=== PATIENT | male | born 1950 | race Caucasian/White ===

== ENCOUNTER 2019-02-06 04:58 | Inpatient (IN) ==
--- NOTE | 2019-01-10 09:02 | Anesthesiology Consultation ---
Date of Service January 10, 2019 Assessment & Plan (1) Encounter for pre-operative examination: - Awaiting review preop testing (labs, EKG, CXR). - Awaiting clarification from surgeon regarding if medical preop evaluation needed prior to surgery from their perspective. Chart Review Chart Review: Patient seen in Pre Admission Testing Teaching & Discussion Pre-Anesthesia Teaching/Discussion Notes: Instructed NPO after midnight before surgery,except medications with 15 cc of water. Medication instructions provided according to the PAT guidelines. History Surgery Operation Date: 02/06/19 10:30 Proposed Procedures p Left Total Knee Arthroplasty - Kalia Sanderson DO Height/Weight Height: 6 ft Weight: 103.6 kg Allergies Allergy/AdvReac Type Severity Reaction Status Date / Time No Known Allergies Allergy Verified 01/10/19 07:08 Medications Home Medications Medication Instructions Recorded Confirmed Last Taken No Known Home Medications 01/10/19 01/10/19 Unknown Past Medical History Medical History Kidney stones Lumbar vertebral fracture hx (40 years ago)- body cast x couple months Obesity Osteoarthritis Exercise / Class Metabolic Activity II 4-5 Yardwork/Stairs/Walk up hill Past Family History Family History Other No pertinent family history Past Surgical History Surgical History History of cataract surgery right History of cholecystectomy History of cystoscopy History of lithotripsy History of total hip arthroplasty right Past Anesthesia History No Hx of Anesthesia Complications and No Family Hx of Anesthesia Complications History of PONV No Hx of PONV and Hx of Motion Sickness (occasional) Social History Smoking Status: Never smoker Do You Dip or Chew Tobacco: No Hx Alcohol Use: Yes alcohol intake frequency: holidays/special occasions only Hx Substance Use: No substance use type: does not use Review of Systems Patient denies chest pain, shortness of breath, dyspnea on exertion, reflux, cough, wheezing, palpitations. Physical Exam Vital Signs VITALS BP 139/82 P 53 (per patient, chronic low to normal HR/asymptomatic) TEMP 97.4 SP02 96%RA RESP 16 PHYSICAL Full neck and c-spine range of motion. Full TMJ range of motion. TMD 3 finger breaths Mallampati Score 2 Dentition: intact, crowns/caps including upper front Lungs: clear throughout to auscultation Cardiac: regular rate and rhythm, no murmurs noted Spine: normal Carotid arteries: negative bruit Extremities: no edema
--- NOTE | 2019-01-10 10:11 | XRay Report ---
XR chest Pre-admission PA/Lat CLINICAL HISTORY: pat pain COMPARISON STUDY: No previous studies for comparison. FINDINGS: The bones soft tissues and hemidiaphragms are normal. The cardiomediastinal silhouette is n ormal. The lungs are clear. The pulmonary vasculature is normal. IMPRESSION: Negative chest. The above report was generated using voice recognition software. It may contain grammatical, syntax or spelling errors. Electronically signed by: Sunny Rose M.D. 01/10/2019 10:09 AM
[2019-01-10 10:37] LABS: Basophils # (auto) 0.01 K/uL (0-0.2); Basophils % (auto) 0.3 %; Eosinophils # (auto) 0.19 K/uL (0-0.5); Eosinophils % (auto) 4.8 %; Hematocrit (blood only) 42.5 % (42-52); Hemoglobin 14.8 g/dL (14.0-18.0); Lymphocytes # (auto) 1.33 K/uL (1.2-3.4); Lymphocytes % (auto) 33.8 %; Mean Corpuscular Hemoglobin 30.4 pg (25-34); Mean Corpuscular Hgb Conc 34.8 g/dL (32-36); Mean Corpuscular Volume 87.3 fL (80-100); Monocytes % (auto) 12.7 %; Neutrophils % (auto) 48.4 %; Platelet Count 164 K/uL (130-400); RDW Coefficient of Variation 13.6 % (11.5-14.5); RDW Standard Deviation 43.3 fL (36.4-46.3); Red Blood Count 4.87 M/uL (4.7-6.1); White Blood Count 3.93 K/uL (4.8-10.8)
[2019-01-10 10:39] LABS: Estimated Average Glucose 111 mg/dl; Hemoglobin A1C 5.5 % (4.5-5.6)
[2019-01-10 10:47] LABS: Albumin Level 3.5 gm/dl (3.4-5.0); BUN Creatinine Ratio 11.3 (10-20); Calcium 8.6 mg/dl (8.5-10.1); Creatinine Clr Calc Pharmacy 89.8 ml/min; Est GFR (African American) 91.4; Est GFR (Non-African American) 78.9; Potassium 4.4 mmol/L (3.5-5.1)
[2019-01-10 10:53] LABS: INR 1.1 (0.9-1.1); Partial Thromboplastin Ratio 0.9; Partial Thromboplastin Time 24.8 Seconds (21.0-31.0); Prothrombin Time 10.8 Seconds (9.0-12.0)
[2019-01-10 13:44] LABS: Appearance Urine Turbid (Clear); Bacteria Urine Automated Negative (Negative); Bilirubin Urine Negative (Negative); Blood Urine Negative (Negative); Color Urine Dark Yellow; Epithelial Cell Urine Auto 0-5 /lpf (0-5); Glucose Urine UA Negative (Negative); Ketones Urine Negative (Negative); Leukocyte Esterase Urine Negative (Negative); Nitrite Urine Negative (Negative); Protein Urine Negative (Negative); RBC Urine Automated 0-4 /hpf (0-4); Specific Gravity Urine 1.024 (1.000-1.030); Urobilinogen Urine Negative (Negative); pH Urine 5.5 (4.5-7.5)
--- NOTE | 2019-01-29 08:06 | History & Physical Report ---
Date of Service January 29, 2019 date of surgery: 02-06-19 Assessment & Plan (1) Osteoarthritis of left knee: Further care discussed with patient and at this point in time has failed conservative measures and would like to proceed with a Left total knee replacement at [facility]. Plan on discharge will be home with home health physical therapy. DVT prophalaxis with TEDs, SCDs and will also place on aspirin 81 mg p.o. b.i.d. for a month postop. Patient will have follow up appointment in our office two weeks post op for staple removal and re-evaluation. Patient otherwise has no other questions or concerns. History of Present Illness Chief Complaint: left knee pain Mr Osorio is a 68 year old male who complains of left knee pain, presents for pre-op evaluation prior to a left total knee rep lacement at [facility]. He presents with pain and stiffness on the left side. He states that the symptoms have been chronic non-traumatic. The symptoms occur intermittently but have gradually worsened. Currently the patient states that the symptoms are moderate-severe. The pain is described as aching, sharp and throbbing. The symptoms are aggravated by ascending stairs, descending stairs, daily activities, first steps while awake, kneeling, movement, repetitive activities, sleeping on the affected side, squatting and walking. In addition to left knee pain the patient is also experiencing limping, nighttime awakening, instability, pain, stiffness, tenderness and weakness. Prior NSAIDs include Aleve and ibuprofen, he has also tried Tylenol without relief. Allergies Allergy/AdvReac Type Severity Reaction Status Date / Time No Known Allergies Allergy Verified 01/10/19 07:08 Home Medications Home Medications Medication Instructions Recorded Confirmed Type No Known Home Medications 01/10/19 01/10/19 History Past Med/Surg History Medical History Kidney stones Lumbar vertebral fracture hx (40 years ago)- body cast x couple months Obesity Osteoarthritis Surgical History History of cataract surgery right History of cholecystectomy History of cystoscopy History of lithotripsy History of total hip arthroplasty right Family History Other No pertinent family history Social History Preferred Language: [place] Communication Ability: Effective Layer Up Required: No Beliefs That Will Affect Care: None Current Living Situation: Alone Other Information That Helps Us Care for You: No Feels Safe at Home: Yes Safety Concerns: Feels Safe At This Time Smoking Status: Never smoker Do You Dip or Chew Tobacco: No ; Second Hand Exposure: No ; Tobacco Cessation Education Requested by Patient: No Hx Alcohol Use: Yes Hx Substance Use: No Review of Systems Review of Systems: All systems reviewed & are unremarkable except as noted in HPI & below Constitutional: no fever, no chills and no sweats Respiratory: no cough and no dyspnea Cardiovascular: no chest pain, no dyspnea and no orthopnea Gastrointestinal: no abdominal pain, no nausea and no vomiting Musculoskeletal: as per Subjective / HPI Physical Exam Physical Exam: Ht: 6ft Wt: 103.3kg BP: 118/76 Pulse: 68 Constitutional: WD/WN, vitals as above no acute distress Respiratory: normal respiratory effort, lungs clear to auscultation no respiratory distress, no labored breathing and does not use accessory muscles Cardiovascular: RRR, no murmur, no edema Gastrointestinal (Abdomen): normal bowel sounds, soft, nontender, no hepatosplenomegaly Musculoskeletal: Knee: + knee abnormal to inspection (Left knee: ), + effusion (+1 effusion), + surgical incision (well healed portals), + limited ROM of knee (ROM 0/3/110), + knee ROM with crepitation, + joint line tenderness (medial joint line) and + Esteban's sign positive; no deformity, no skin erythema, no ecchymosis, no valgus laxity, no varus laxity, anterior drawer test negative, Kenrick's sign negative and pivot shift test negative Results & Data Laboratory Results Laboratory Results WBC 3.93 K/uL (4.8-10.8) L 01/10/19 09:16 RBC 4.87 M/uL (4.7-6.1) 01/10/19 09:16 Hgb 14.8 g/dL (14.0-18.0) 01/10/19 09:16 Hct 42.5 % (42-52) 01/10/19 09:16 MCV 87.3 fL (80-100) 01/10/19 09:16 MCH 30.4 pg (25-34) 01/10/19 09:16 MCHC 34.8 g/dL (32-36) 01/10/19 09:16 RDW Std Deviation 43.3 fL (36.4-46.3) 01/10/19 09:16 RDW Coeff of Irma 13.6 % (11.5-14.5) 01/10/19 09:16 Plt Count 164 K/uL (130-400) 01/10/19 09:16 MPV 11.0 fL (7.4-10.4) H 01/10/19 09:16 Immature Gran % (Auto) 0.0 % 01/10/19 09:16 Neut % (Auto) 48.4 % 01/10/19 09:16 Lymph % (Auto) 33.8 % 01/10/19 09:16 [place] % (Auto) 12.7 % 01/10/19 09:16 Eos % (Auto) 4.8 % 01/10/19 09:16 Baso % (Auto) 0.3 % 01/10/19 09:16 Immature Gran # (Auto) 0.00 K/uL (0.00-0.02) 01/10/19 09:16 Neut # (Auto) 1.90 K/uL (1.4-6.5) 01/10/19 09:16 Lymph # (Auto) 1.33 K/uL (1.2-3.4) 01/10/19 09:16 [place] # (Auto) 0.50 K/uL (0.11-0.59) 01/10/19 09:16 Eos # (Auto) 0.19 K/uL (0-0.5) 01/10/19 09:16 Baso # (Auto) 0.01 K/uL (0-0.2) 01/10/19 09:16 PT 10.8 Seconds (9.0-12.0) 01/10/19 09:16 INR 1.1 (0.9-1.1) 01/10/19 09:16 APTT 24.8 Seconds (21.0-31.0) 01/10/19 09:16 PTT Ratio 0.9 01/10/19 09:16 Sodium 139 mmol/L (136-145) 01/10/19 09:16 Potassium 4.4 mmol/L (3.5-5.1) 01/10/19 09:16 Chloride 108 mmol/L (98-107) H 01/10/19 09:16 Carbon Dioxide 26 mmol/L (21-32) 01/10/19 09:16 Anion Gap 5.0 (3-11) 01/10/19 09:16 BUN 11 mg/dl (7-18) 01/10/19 09:16 Creatinine 0.98 mg/dl (0.6-1.4) 01/10/19 09:16 Est Cr Clr Drug Dosing 89.8 ml/min 01/10/19 09:16 Est GFR ( Amer) 91.4 01/10/19 09:16 Est GFR (Non-Af Amer) 78.9 01/10/19 09:16 BUN/Creatinine Ratio 11.3 (10-20) 01/10/19 09:16 Glucose 114 mg/dl (70-99) H 01/10/19 09:16 Estimat Average Glucose 111 mg/dl 01/10/19 09:16 Hemoglobin A1c 5.5 % (4.5-5.6) 01/10/19 09:16 Calcium 8.6 mg/dl (8.5-10.1) 01/10/19 09:16 Albumin 3.5 gm/dl (3.4-5.0) 01/10/19 09:16 Urine Color Dark Yellow 01/10/19 09:16 Urine Appearance Turbid (Clear) A 01/10/19 09:16 Urine pH 5.5 (4.5-7.5) 01/10/19 09:16 Ur Specific [place] 1.024 (1.000-1.030) 01/10/19 09:16 Urine Protein Negative (Negative) 01/10/19 09:16 Urine Glucose (UA) Negative (Negative) 01/10/19 09:16 Urine Ketones Negative (Negative) 01/10/19 09:16 Urine Blood Negative (Negative) 01/10/19 09:16 Urine Nitrite Negative (Negative) 01/10/19 09:16 Urine Bilirubin Negative (Negative) 01/10/19 09:16 Urine Urobilinogen Negative (Negative) 01/10/19 09:16 Ur Leukocyte Esterase Negative (Negative) 01/10/19 09:16 Urine WBC (Auto) 1-5 /hpf (0-5) 01/10/19 09:16 Urine RBC (Auto) 0-4 /hpf (0-4) 01/10/19 09:16 U Hyaline Cast (Auto) 1-5 /lpf (0-5) 01/10/19 09:16 U Epithel Cells (Auto) 0-5 /lpf (0-5) 01/10/19 09:16 Urine Bacteria (Auto) Negative (Negative) 01/10/19 09:16 Blood Type A Positive 01/10/19 09:16 Antibody Screen NEGATIVE 01/10/19 09:16 Diagnostic Findings Left Knee X-ray from December 2018 confirms advanced degenerative changes to the left knee, greatest medial compartments and patellofemoral joint, showing joint space narrowing, osteophyte formation and subchondral sclerosis. no acute bony pathology noted.
[2019-02-06] MEDS ORDERED: CeleBREX 200 MG CAP PO SCH (06:00)
[2019-02-06] MEDS ORDERED: TRANEXAMIC ACID 1,000 MG **IV Pre-op IV SCH (06:00)
[2019-02-06] MEDS ORDERED: CEFAZOLIN 2000MG 2,000 MG/15 ML SYR IV SCH (06:00)
[2019-02-06] MEDS ORDERED: ROPIVACAINE 0.5% HCL/PF 150 MG, BUPIVACAINE 0.5% MPF 30 ML, EPINEPHrine 30MG/30ML (OR U... INFIL SCH (06:00)
[2019-02-06] MEDS ORDERED: FAMOTIDINE 20 MG TAB PO SCH (06:00)
[2019-02-06] MEDS ORDERED: METOCLOPRAMIDE HCL 10 MG TABLET PO SCH (06:00)
[2019-02-06] MEDS ORDERED: ACETAMINOPHEN 500 MG TAB PO SCH (06:00)
[2019-02-06] MEDS ORDERED: LR 500ML BOLUS, THEN 15ML/HR IV SCH (06:00)
[2019-02-06] MEDS ORDERED: GABAPENTIN 300 MG CAP PO SCH (06:00)
[2019-02-06] MEDS ORDERED: dexAMETHasone 4 MG TAB PO SCH (06:00)
[2019-02-06] MEDS ORDERED: BUPIVACAINE 0.5 % 5 MG/1 ML PF 10ML VIAL ONE (06:18)
[2019-02-06] MEDS ORDERED: EPINEPHrine INJ 1 MG/ML AMP ONE (06:19)
[2019-02-06] MEDS ORDERED: ROPIVACAINE 0.5% 5 MG/ML 30 ML VIAL ONE (06:19)
[2019-02-06] MEDS ORDERED: TRANEXAMIC ACID 1,000 MG **IV Intra-op IV SCH (06:30)
[2019-02-06] MEDS ORDERED: fentaNYL citrate 100 MCG/2 ML VIAL ONE (06:48)
[2019-02-06] MEDS ORDERED: MIDAZOLAM HCL 1 MG/ML 2ML VIAL ONE (06:48)
[2019-02-06] MEDS ORDERED: ORTHO JOINT ANESTHETIC ONE (07:04)
[2019-02-06] MEDS ORDERED: BACITRACIN INJ 50,000 UNIT VIAL ONE (07:04)
--- NOTE | 2019-02-06 07:10 | History & Physical Bridge Note ---
Date of Service February 06, 2019 History & Physical Bridge Note I have examined the patient, reviewed the History & Physical and in the interval since the performance of the History & Physical I have noted the following changes of clinical significance: no changes noted
[2019-02-06] MEDS ORDERED: PROPOFOL IV EMULSION 10 MG/ML 20 ML VIAL IV ONE (07:38)
--- NOTE | 2019-02-06 08:34 | Operative Report ---
Post Operative Report Pre & Post Diagnosis Operation Date: 02/06/19 07:15 Pre-Op Diagnosis: LEFT KNEE OSTEOARTHRITIS Post-Op Diagnosis: LEFT KNEE OSTEOARTHRITIS I identified the patient and participated in the time-out.: Yes Procedure Operation Date: 02/06/19 07:15 Actual Procedures p Left Total Knee Arthroplasty utilizing [employer] 2 patient matched total knee arthroplasty size 8 femur 8 tibia 9 polyethylene 38 oval patella- Kalia Sanderson DO Surgeon Kalia Sanderson DO Public Improvement Inspector Sunny GONZALEZ Estimated Blood Loss 5 Findings Consistent with Post-Op Diagnosis Patient presents with severe end-stage right apartment degenerative joint disease varus alignment [id number] eburnated bone with osteophytes marginally on both medial lateral compartment as well as patellofemoral subchondral cystic changes sclerosis moderate to large effusion Specimens Bone and cartilage Drains Medium bore Hemovac Complications none Disposition Accompanied Patient To Recovery: No Disposition: Recovery Room Indications Patient presents as a 68-year-old white male being seen by with planes of ongoing pain trouble to his left knee is been no response to conservative management including physical therapy anti-inflammatories relative rest activity modifications corticosteroid injections Visco supplementations a presents the above intraoperative findings were noted. Description of Procedure The patient properly identifiedAfter proper prepping and draping of the left lower extremity anterior midline incision was made over the region of the extensor extensor mechanism after meticulous hemostasis was obtained and maintained in subcutaneous tissues a medial parapatellar incision was made The patella was subluxed lateralward the medial lateral gutter were cleaned from any hypertrophic synovitis and scar tissue of the distal femoral block was placed and the distal femoral osteotomy cut was made subsequently the chamfers anterior and posterior osteotomy cuts were made utilizing the 4-in-1 block the tibia was subsequently subluxed anteriorward medial and ateral meniscal remnants were excised in their entirety remnants of the anterior and posterior cruciate ligaments were excised in their entirety excellent exposure of the proximal tibia was obtained the tibial osteotomy guide was placed on the proximal tibial osteotomy cut was made once again the knee was irrigated with copious amounts of sterile saline solution the patella was subsequently everted lateralward thickened scar tissue around the patella was removed the patella was subsequently cut utilizing a freehand technique and was drilled prepared for final preparation and placement of patella socially flexion-extension gaps were checked and the equal and symmetric trials were placed to the appropriate femoral and tibial trials with poly-spacer being placed for equal flexion and extension gaps and full range of motion including extension to 0 and flexion to 140 the trial components after having been taken to recovery range of motion was subsequently removed meticulous hemostasis was obtained and maintained subsequently a knee block injection of joint cocktail including ropivacaine 0.5% 150 mg. Bupivacaine 0.5% epinephrine 1-200,030 mL's toradol 30 mg dexamethasone 4 mg ketamine 10 mg clonidine 100 micrograms normal saline solution 30 mg was infiltrated into the soft tissues of the posterior knee medial lateral gutters and periosteal synovium special attention was paid to protect neurovascular structures at all times subsequently trial components having been removed the knee was irrigated with sterile saline solution. debris was removed the proximal tibia was subsequently prepared and was made ready for the placement of the tibial component tibial component was also cemented and tamped into position the femoral component was subsequently placed and cemented in the position the patellar component was subsequently cemented in position because hemostasis once again obtained and maintained wound having been thoroughly irrigated with debridement and debridement lavage was performed as well as a medial parapatellar incision closed with #1 Vicryl in interrupted fashion subcutaneous was closed with #2 Vicryl skin was closed with skin clips. PA-C was necessary for prepping and drapping as well as wound closure of deep fascia Sub cutaneous tissue and skin and was necessary for the case. A sterile compressive dressing was placed patient was taken to recovery in stable condition of report dictated by Kin I attest to the content of the Intraoperative Record and any orders documented therein. Any exceptions are noted below. I attest to the content of the Intraoperative Record and any orders documented therein. Any exceptions are noted below.
[2019-02-06] MEDS ORDERED: ONDANSETRON INJ 2 MG/ML 2 ML VIAL ONE (08:35)
--- NOTE | 2019-02-06 09:37 | XRay Report ---
TWO VIEWS LEFT KNEE CLINICAL HISTORY: Postoperative examination. FINDINGS: AP and crosstable lateral portable views of the left knee are obtained. A left knee arthrop lasty is in near anatomic alignment. There has been undersurface remodeling of the patella. No acute fracture is seen. There are expected postoperative changes around the knee including a surgical drain , soft tissue edema, and subcutaneous gas. Atherosclerotic calcification is noted in the regional art eries. IMPRESSION: Expected postoperative changes status post left knee arthroplasty. No acute fracture is s een. Electronically signed by: Lauro Rubi M.D. 02/06/2019 9:36 AM
[2019-02-06] MEDS ORDERED: fentaNYL citrate 100 MCG/2 ML VIAL IV PRN (10:31)
[2019-02-06] MEDS ORDERED: ePHEDrine sulfate 50 MG/ML AMP IV PRN (10:31)
[2019-02-06] MEDS ORDERED: HYDROmorphone INJ 1 MG/ML SYRINGE IV PRN ×2 (10:31→10:44)
[2019-02-06] MEDS ORDERED: ATROPINE SULFATE 0.1 MG/ML 10ML SYR IV PRN (10:31)
[2019-02-06] MEDS ORDERED: ONDANSETRON INJ 2 MG/ML 2 ML VIAL IV PRN ×2 (10:31→10:44)
--- NOTE | 2019-02-06 10:31 | Anesthesiology Progress Note ---
Date of Service February 06, 2019 Anesthesia Post Procedure Vital Signs Vital Signs: Temp Pulse Pulse Resp BP Pulse Ox 02/06/19 10:30 55 L 16 98/58 L 96 02/06/19 10:15 52 L 16 101/64 96 02/06/19 10:01 56 L 16 95/63 L 94 02/06/19 09:50 36.6 C 56 L 16 101/66 96 02/06/19 09:40 56 L 16 95/66 L 96 02/06/19 09:30 60 17 106/68 95 02/06/19 09:20 37.1 C 77 18 101/62 95 02/06/19 05:41 36.6 C 57 L 16 132/82 96 Pain Intensity Left Knee: Pain Intensity: 0 Transfer of Care Handoff Completed per policy Notes Mental Status: alert / awake / arousable and participated in evaluation Patient Amnestic to Procedure: Yes Nausea / Vomiting: adequately controlled Pain: adequately controlled Airway Patency, RR, SpO2: stable & adequate BP & HR: stable & adequate Hydration State: stable & adequate Neuraxial Anesthesia: was administered and sensory block is resolving Anesthetic Complications: no major complications apparent and Pt Satisfied with anesthetic care
[2019-02-06] MEDS ORDERED: METOCLOPRAMIDE HCL INJ 5 MG/ML 2 ML VIAL IV PRN (10:44)
[2019-02-06] MEDS ORDERED: bisacodyL 10 MG SUPP PR PRN (10:44)
[2019-02-06] MEDS ORDERED: NALOXONE HCL 0.4 MG/1 ML VIAL/CARP IV PRN (10:44)
[2019-02-06] MEDS ORDERED: MAGNESIUM HYDROXIDE SUSP 30 ML UDC PO PRN (10:44)
[2019-02-06] MEDS: SODIUM CHLORIDE 0.9% 1000ML 1,000 ML IV SCH ×2 (11:20→20:57)
[2019-02-06] MEDS: KETOROLAC TROMETHAMINE 15 MG/ML VIAL IV SCH ×3 (11:20→23:05)
[2019-02-06] MEDS: ACETAMINOPHEN 500 MG TAB PO SCH ×2 (13:05→20:57)
[2019-02-06] MEDS: CEFAZOLIN 2000MG 2,000 MG/15 ML SYR IV SCH ×2 (16:38→23:05)
[2019-02-06] MEDS: ASPIRIN 81 MG ECTAB PO SCH (20:57)
[2019-02-06] MEDS: DOCUSATE SODIUM 100 MG CAP PO SCH (20:57)
[2019-02-06] MEDS: SENNA 8.6 MG TAB PO SCH (20:57)
[2019-02-07] MEDS: ACETAMINOPHEN 500 MG TAB PO SCH ×3 (05:33→21:40)
[2019-02-07] MEDS: KETOROLAC TROMETHAMINE 15 MG/ML VIAL IV SCH (05:33)
[2019-02-07 05:43] LABS: Hematocrit (blood only) 33.7 % (42-52); Hemoglobin 11.9 g/dL (14.0-18.0); Mean Corpuscular Hemoglobin 30.3 pg (25-34); Mean Corpuscular Hgb Conc 35.3 g/dL (32-36); Mean Corpuscular Volume 85.8 fL (80-100); Platelet Count 153 K/uL (130-400); RDW Coefficient of Variation 13.2 % (11.5-14.5); RDW Standard Deviation 41.7 fL (36.4-46.3); Red Blood Count 3.93 M/uL (4.7-6.1)
[2019-02-07 06:17] LABS: BUN Creatinine Ratio 12.1 (10-20); Creatinine Clr Calc Pharmacy 88.8 ml/min; Est GFR (African American) 90.3; Est GFR (Non-African American) 77.9; Potassium 3.8 mmol/L (3.5-5.1)
[2019-02-07] MEDS: MULTIVITAMIN TAB PO SCH (08:29)
[2019-02-07] MEDS: ASPIRIN 81 MG ECTAB PO SCH ×2 (08:29→21:40)
[2019-02-07] MEDS: DOCUSATE SODIUM 100 MG CAP PO SCH ×2 (08:29→21:40)
--- NOTE | 2019-02-07 09:30 | Orthopedic Progress Note ---
Date of Service February 07, 2019 Assessment & Plan (1) History of total left knee replacement: POD #1 s/p Left TKA pt/ot dvt proph with TATY/SCD/ASA plan for d/c home with HHPT. will leave hemovac in until tomorrow and have home nursing d/c tomorrow. Subjective POD #1 s/p Left TKA Review of Systems Constitutional: no fever, no chills and no sweats Respiratory: no cough and no dyspnea Cardiovascular: no chest pain and no dyspnea Gastrointestinal: no abdominal pain, no nausea and no vomiting Physical Exam Physical Exam: Vital Signs Temp 36.4 C L 02/07/19 07:40 Pulse 56 L 02/07/19 07:40 Resp 16 02/07/19 07:40 BP 140/70 02/07/19 07:40 Pulse Ox 96 02/07/19 07:40 Intake & Output 02/06/19 02/07/19 02/07/19 18:59 06:59 18:59 Intake Total 2620 / 5016.667 2396.667 / 5016.66 7 Output Total 1005 / 2405 1400 / 2405 150 / 150 Balance 1615 / 2611.667 996.667 / 2611.667 -150 / -150 Intake: IV 520 / 2341.667 1821.667 / 2341.66 7 Lr 1,000 ml @ 15 mls/hr IV . 300 / 300 Q24H ZUNILDA Rx#:[id number] Nss 1000ML 1,0 00 ml @ 100 mls/ 1821.667 / 1821.66 7 hr IV .Q10H SC H Rx#:[id number] Cyklokapron 1, 000 mg In Sodium 220 / 220 Chloride 100 m l @ 660 mls/hr IV 0630 ZUNILDA Rx#:[id number] IV Perioperative 1600 / 1600 Oral 500 / 1075 575 / 1075 Output: Urine 875 / 1850 975 / 1850 Estimated Blood Loss 5 / 5 Drain Output 125 / 550 425 / 550 150 / 150 Left Knee Hemo vac 125 / 550 425 / 550 150 / 150 Constitutional: WD/WN, vitals as above no acute distress Musculoskeletal: Left Leg: NVDI, calf SNT, negative mike sign. DP palpable, able to wiggle toes/ankle movement without difficulty. dressing clean dry and intact. Results & Data Vital Signs (Past 12 Hours) Vital Signs Temp Pulse Pulse Pulse Resp BP Pulse Ox 02/07/19 07:40 36.4 C L 56 L 16 140/70 96 02/07/19 02:53 36.5 C 58 L 16 143/74 H 98 02/06/19 23:07 36.5 C 61 16 119/67 96 Laboratory Results Laboratory Results WBC 11.70 K/uL (4.8-10.8) H 02/07/19 05:17 RBC 3.93 M/uL (4.7-6.1) L 02/07/19 05:17 Hgb 11.9 g/dL (14.0-18.0) L 02/07/19 05:17 Hct 33.7 % (42-52) L 02/07/19 05:17 MCV 85.8 fL (80-100) 02/07/19 05:17 MCH 30.3 pg (25-34) 02/07/19 05:17 MCHC 35.3 g/dL (32-36) 02/07/19 05:17 RDW Std Deviation 41.7 fL (36.4-46.3) 02/07/19 05:17 RDW Coeff of Irma 13.2 % (11.5-14.5) 02/07/19 05:17 Plt Count 153 K/uL (130-400) 02/07/19 05:17 MPV 10.0 fL (7.4-10.4) 02/07/19 05:17 Immature Gran % (Auto) 0.0 % 01/10/19 09:16 Neut % (Auto) 48.4 % 01/10/19 09:16 Lymph % (Auto) 33.8 % 01/10/19 09:16 [place] % (Auto) 12.7 % 01/10/19 09:16 Eos % (Auto) 4.8 % 01/10/19 09:16 Baso % (Auto) 0.3 % 01/10/19 09:16 Immature Gran # (Auto) 0.00 K/uL (0.00-0.02) 01/10/19 09:16 Neut # (Auto) 1.90 K/uL (1.4-6.5) 01/10/19 09:16 Lymph # (Auto) 1.33 K/uL (1.2-3.4) 01/10/19 09:16 [place] # (Auto) 0.50 K/uL (0.11-0.59) 01/10/19 09:16 Eos # (Auto) 0.19 K/uL (0-0.5) 01/10/19 09:16 Baso # (Auto) 0.01 K/uL (0-0.2) 01/10/19 09:16 PT 10.8 Seconds (9.0-12.0) 01/10/19 09:16 INR 1.1 (0.9-1.1) 01/10/19 09:16 APTT 24.8 Seconds (21.0-31.0) 01/10/19 09:16 PTT Ratio 0.9 01/10/19 09:16 Sodium 140 mmol/L (136-145) 02/07/19 05:17 Potassium 3.8 mmol/L (3.5-5.1) 02/07/19 05:17 Chloride 111 mmol/L (98-107) H 02/07/19 05:17 Carbon Dioxide 24 mmol/L (21-32) 02/07/19 05:17 Anion Gap 5.0 (3-11) 02/07/19 05:17 BUN 12 mg/dl (7-18) 02/07/19 05:17 Creatinine 0.99 mg/dl (0.6-1.4) 02/07/19 05:17 Est Cr Clr Drug Dosing 88.8 ml/min 02/07/19 05:17 Est GFR ( Amer) 90.3 02/07/19 05:17 Est GFR (Non-Af Amer) 77.9 02/07/19 05:17 BUN/Creatinine Ratio 12.1 (10-20) 02/07/19 05:17 Glucose 164 mg/dl (70-99) H 02/07/19 05:17 Estimat Average Glucose 111 mg/dl 01/10/19 09:16 Hemoglobin A1c 5.5 % (4.5-5.6) 01/10/19 09:16 Calcium 8.0 mg/dl (8.5-10.1) L 02/07/19 05:17 Albumin 3.5 gm/dl (3.4-5.0) 01/10/19 09:16 Urine Color Dark Yellow 01/10/19 09:16 Urine Appearance Turbid (Clear) A 01/10/19 09:16 Urine pH 5.5 (4.5-7.5) 01/10/19 09:16 Ur Specific [place] 1.024 (1.000-1.030) 01/10/19 09:16 Urine Protein Negative (Negative) 01/10/19 09:16 Urine Glucose (UA) Negative (Negative) 01/10/19 09:16 Urine Ketones Negative (Negative) 01/10/19 09:16 Urine Blood Negative (Negative) 01/10/19 09:16 Urine Nitrite Negative (Negative) 01/10/19 09:16 Urine Bilirubin Negative (Negative) 01/10/19 09:16 Urine Urobilinogen Negative (Negative) 01/10/19 09:16 Ur Leukocyte Esterase Negative (Negative) 01/10/19 09:16 Urine WBC (Auto) 1-5 /hpf (0-5) 01/10/19 09:16 Urine RBC (Auto) 0-4 /hpf (0-4) 01/10/19 09:16 U Hyaline Cast (Auto) 1-5 /lpf (0-5) 01/10/19 09:16 U Epithel Cells (Auto) 0-5 /lpf (0-5) 01/10/19 09:16 Urine Bacteria (Auto) Negative (Negative) 01/10/19 09:16 Hepatitis C Ab Screen Neg (Neg) 02/06/19 05:47 Blood Type A Positive 01/10/19 09:16 Antibody Screen NEGATIVE 01/10/19 09:16 Diagnostic Findings TWO VIEWS LEFT KNEE CLINICAL HISTORY: Postoperative examination. FINDINGS: AP and crosstable lateral portable views of the left knee are obtained. A left knee arthroplasty is in near anatomic alignment. There has been undersurface remodeling of the patella. No acute fracture is seen. There are expected postoperative changes around the knee including a surgical drain, soft tissue edema, and subcutaneous gas. Atherosclerotic calcification is noted in the regional arteries. IMPRESSION: Expected postoperative changes status post left knee arthroplasty. No acute fracture is seen.
[2019-02-07] MEDS: OXYCODONE HCL IR 5 MG TAB (IMMEDIATE RELEASE) PO PRN (15:43)
[2019-02-07] MEDS: SENNA 8.6 MG TAB PO SCH (21:40)
[2019-02-07] MEDS: CeleBREX 200 MG CAP PO SCH (21:40)
[2019-02-08] MEDS: ACETAMINOPHEN 500 MG TAB PO SCH ×2 (05:51→13:51)
[2019-02-08] MEDS: OXYCODONE HCL IR 5 MG TAB (IMMEDIATE RELEASE) PO PRN ×2 (05:51→13:50)
--- NOTE | 2019-02-08 07:14 | Orthopedic Progress Note ---
Date of Service February 08, 2019 Assessment & Plan (1) History of total left knee replacement: POD #2 s/p Left TKA pt/ot dvt proph with TATY/SCD/ASA plan for d/c home with HHPT after PT today Subjective POD #2 s/p Left TKA Physical Exam Physical Exam: Vital Signs Temp Pulse Pulse Resp BP Pulse Ox 02/08/19 07:08 36.4 C L 54 L 18 155/81 H 96 02/07/19 23:00 36.6 C 61 16 133/73 95 02/07/19 15:26 36.6 C 61 18 151/83 H 97 02/07/19 13:49 97 02/07/19 11:50 36.7 C 55 L 14 142/80 H 97 02/07/19 07:40 36.4 C L 56 L 16 140/70 96 Intake and Output 02/07/19 02/08/19 02/08/19 22:59 06:59 14:59 Intake Total 550 / 1695 350 / 1695 Output Total 150 / 500 50 / 500 Balance 400 / 1195 300 / 1195 Intake: Oral 550 / 1695 350 / 1695 Output: Drain Output 150 / 500 50 / 500 Left Knee Hemo vac 150 / 500 50 / 500 Other: # Unmeasured Voi ds 1 Constitutional: WD/WN, vitals as above no acute distress Musculoskeletal: left knee: NVDI, calf SNT, negative mike sign. DP palpable, able to wiggle toes/ankle movement without difficulty. incision clean dry and intact. expected post-operative bruising noted. Results & Data Vital Signs (Past 12 Hours) Vital Signs Temp Pulse Resp BP Pulse Ox 02/08/19 07:08 36.4 C L 54 L 18 155/81 H 96 02/07/19 23:00 36.6 C 61 16 133/73 95
[2019-02-08] MEDS: ASPIRIN 81 MG ECTAB PO SCH (08:00)
[2019-02-08] MEDS: MULTIVITAMIN TAB PO SCH (08:00)
[2019-02-08] MEDS: DOCUSATE SODIUM 100 MG CAP PO SCH (08:00)
[2019-02-08] MEDS: CeleBREX 200 MG CAP PO SCH (08:00)
--- NOTE | 2019-02-08 12:26 | Anesthesiology Progress Note ---
Date of Service February 08, 2019 Anesthesia Post Procedure Vital Signs Vital Signs: Temp Pulse Pulse Pulse Resp BP Pulse Ox 02/08/19 09:43 36.4 C L 55 L 54 L 61 18 155/81 H 96 02/08/19 07:08 36.4 C L 54 L 18 155/81 H 96 02/07/19 23:00 36.6 C 61 16 133/73 95 02/07/19 15:26 36.6 C 61 18 151/83 H 97 02/07/19 13:49 97 Pain Intensity Left Knee: Pain Intensity: 3 Transfer of Care Handoff Completed per policy Notes Mental Status: alert / awake / arousable and participated in evaluation Patient Amnestic to Procedure: Yes Nausea / Vomiting: adequately controlled Pain: improving with treatment Airway Patency, RR, SpO2: stable & adequate BP & HR: stable & adequate Hydration State: stable & adequate Anesthetic Complications: see Notes below and Pt Satisfied with anesthetic care Notes: Called by nursing as patient complaining of a positional headache. He had SAB on 02/06/2019 and noticed yesterday when he sat in a chair that he started to develop a frontal headache. The headache improved when he would lay down. No photophobia, no neck stiffness, no N/V associated with it. Headache described as mild to moderate and he has been able to do physical therapy but stopped before completely finishing 2/2 the headache. In speaking with him, I stated this likely represented a postdural puncture headache. I discussed at length with him in regards to his treatment options. At this time, he wants to pursue conservative therapy as he wants to go home today. He will increase his fluid production along with caffeinated beverages. I also wrote for 500mcg cosyntropin IV per protocol. I will attempt to contact his orthopedics PA to see if he can be written for fioricets as an outpatient. He also knows to go to the ER for worsening headache or headache that persists for longer than a week. He will also go to ER if the headache is preventing him from effectively rehabbing his knee. He knows we would be able to offer him an epidural blood patch but at this time he is NOT interested in this treatment. All questions were answered.
[2019-02-08] MEDS ORDERED: COSYNTROPIN IV ONE (12:45)
[2019-02-08] MEDS ORDERED: SODIUM CHLORIDE 0.9% IV ONE (12:45)
--- NOTE | 2019-02-08 18:00 | Discharge Summary ---
Date of Service date of discharge: February 08, 2019 date of admission: 02/06/19 Admission HPI Per Admitting Provider Mr Osorio is a 68 year old male who complains of left knee pain, presents for pre-op evaluation prior to a left total knee replacement at [facility]. He presents with pain and stiffness on the left side. He states that the symptoms have been chronic non-traumatic. The symptoms occur intermittently but have gradually worsened. Currently the patient states that the symptoms are moderate-severe. The pain is described as aching, sharp and throbbing. The symptoms are aggravated by ascending stairs, descending stairs, daily activities, first steps while awake, kneeling, movement, repetitive activities, sleeping on the affected side, squatting and walking. In addition to left knee pain the patient is also experiencing limping, nighttime awakening, instability, pain, stiffness, tenderness and weakness. Prior NSAIDs include Aleve and ibuprofen, he has also tried Tylenol without relief. Principal Diagnosis left knee osteoarthritis Discharge Exam Vital Signs Temp 36.4 C L 02/08/19 09:43 Pulse 55 L 02/08/19 09:43 Resp 18 02/08/19 09:43 BP 155/81 H 02/08/19 09:43 Pulse Ox 96 02/08/19 09:43 Intake & Output 02/07/19 02/08/19 02/08/19 18:59 06:59 18:59 Intake Total 795 / 1695 900 / 1695 797 / 797 Output Total 300 / 500 200 / 500 Balance 495 / 1195 700 / 1195 797 / 797 Weight 103.3 kg Intake: IV Cortrosyn 500 Mcg In Nss 50 ml @ 624 mls/hr IV NOW ONE Rx#: [id number] Oral 795 / 1695 900 / 1695 745 / 745 Output: Drain Output 300 / 500 200 / 500 Left Knee Hemovac 300 / 500 200 / 500 Other: # Unmeasured Voids 2 1 Constitutional WD/WN, vitals as above no acute distress Musculoskeletal left knee: NVDI, calf SNT, negative mike sign. DP palpable, able to wiggle toes/ankle movement without difficulty. Incision clean dry and intact. expected post-operative bruising noted. Discharge Data Allergies Allergy/AdvReac Type Severity Reaction Status Date / Time No Known Allergies Allergy Verified 02/06/19 05:39 Consultations 02/06/19 10:44 Consult Case Management - Discharge Planning Routine 02/07/19 09:46 Consult Case Management - Discharge Planning Routine Procedures Performed Operation Date: 02/06/19 07:15 Actual Procedures p Left Total Knee Arthroplasty(Left) - Kalia Sanderson DO Ordered Studies 02/06/19 05:00 US - OR guided needle placemen Routine 02/06/19 07:11 US - OR guided needle placemen Routine Hospital Course (1) History of total left knee replacement: POD #2 s/p Left TKA pt/ot dvt proph with TATY/SCD/ASA plan for d/c home with HHPT after PT today Total Time Total Time Spent Total Time Spent (In Minutes): 20 Total Time Includes: Examination of the Patient, Discharge Planning and Medication Reconciliation Discharge Plan Discharge Items Patient Disposition: Home - Home Health Services Reason For Visit: LEFT KNEE OSTEOARTHRITIS Discharge Diagnosis: left total knee replacement Condition on Discharge: Good Activity: Per Instructions section Lifting: Wait until after follow-up appointment Weightbearing: Full weightbearing and Left weightbearing Non-emergency contact: Surgeon Call non-emergency contact if: you have any medication questions, your temperature is above 101, your wound has increased redness, your wound has increased drainage and your wound pain has increased Follow-up/Referrals: PCP,NO [Primary Care Provider] - Diet: Regular Addtl Attending Provider Instructions: ACTIVITY RECOMMENDATIONS: SELF CARE INSTRUCTIONS AFTER TOTAL KNEE REPLACEMENT A. You may need to continue a physical therapy program after discharge from the hospital. There are several options available to you. Your doctor will assist you in selecting the best one for you. 1. An out-patient facility 2 to 3 times a week for therapy or home therapy. 2. Continue working on all exercises taught to you in the hospital. Your goals should be to increase bending of your knee to 90 degrees and beyond and to fully straighten your knee. B. You may progress at your own pace from walking with a walker or crutches to a cane; then to no assistive devices. C. Make walking a part of your daily routine. Be up as much as comfortable with rest periods throughout the day. Rest with leg elevation is very important. Use the ice wrap frequently for the first 3-4 weeks. D. There are no restrictions on activities. You may ride in a car, shop, participate in household appliance installer and all social activities. E. Wear the long elastic stockings (TATY hose) 20 hours a day for 2 weeks after surgery. They can be removed several times a day for laundering and for a bath. F. You may shower, no tub baths until cleared by your doctor. SPECIAL CARE INSTRUCTIONS: VERY IMPORTANT TO READ AND REVIEW A. There are a few signs you need to watch for after you are home. Call [facility] if you notice any of the followin. Increased severe knee pain. Some pain is expected especially when you exercise. 2. Increased swelling in your leg or knee; pain or swelling of the calf muscle in either lower leg. 3. Any fluid drainage from the incision. 4. Shortness of breath or chest pain. B. Please call [facility] at if you have any concerns or questions about your operation or recovery. The doctor or his nurse will return your call promptly. C. You must take antibiotics before dental work, bladder, bowel or other surgery. Your doctor will provide you with a permanent care to carry describing this precaution. IMPORTANT: * REMEMBER TO TAKE ASPIRIN, 81 MG, TWICE DAILY FOR 4 WEEKS UNLESS OTHERWISE DIRECTED. THIS IS YOUR BLOOD THINNER. * HIGH RISK PATIENTS MAY BE PRESCRIBED A STRONGER BLOOD THINNER. THIS WILL BE PROVIDED AT DISCHARGE. * CALL IF INCREASED PAIN, REDNESS, DRAINAGE OR FEVER GREATER THAT 101. * WEAR TATY HOSE 20 HOURS PER DAY FOR 2 WEEKS. * DERMABOND Prineo- This is a mesh tape dressing that is covered with glue. It should remain in place until the incision is properly healed, usually 10-14 days. This dressing is designed to naturally slough off. You may trim the excess mesh tape as it peels off. Incision may be briefly wet in a shower. Dry immediately by blotting with a clean, dry towel. Do not bath or swim until instructed by your doctor. Do not scratch, rub, or pick at the dressing. Do not apply any topical ointments or lotions until dressing is completely removed and/or instructed by your doctor. There may be a small piece of suture material at one end of your incision. Do not pull or trim this. If it is bothersome or catching on clothing, you may cover it with a band-aid. IF INCISION IS LEAKING THROUGH DRESSING, CALL THE OFFICE . FOLLOW UP VISIT: If appointment is not already scheduled: Please call [facility] to make a follow-up appointment for 2 weeks after your surgery at . Pending Studies at Discharge: No Stand-Alone Forms: [facility], [facility]io[facility], Smoking Cessation Medications and DC Order Prescriptions: New celecoxib [Celebrex] 200 mg Capsule 200 mg PO BID 30 Days Qty: 60 RF: 0 aspirin [Ecotrin Low Strength] 81 mg Tablet,Delayed Release (Dr/Ec) 81 mg PO BID 30 Days Qty: 60 RF: 0 acetaminophen [Tylenol Extra Strength] 500 mg Tablet 1,000 mg PO Q8 14 Days Qty: 84 RF: 0 oxycodone 5 mg Tablet 5 - 10 mg PO Q6H PRN (Reason: pain) Qty: 30 RF: 0 docusate sodium 100 mg Capsule 100 mg PO BID 10 Days Qty: 20 RF: 0 cefadroxil 500 mg capsule 500 mg PO BID 10 Days Qty: 20 RF: 0 No Action No Known Home Medications RF: 0 Discharge Orders: Discharge Order (Routine); Ordered 02/08/19 Ordered By: Sunny Ramírez/Other Patient Handouts: Surgery Prevent DVT After Admission Data Admit Date/Time: 02/06/19 09:25 Attending Provider: Kalia Sanderson Admit Provider: Kalia Sanderson Primary Care Provider: PCP,NO Other Interventions: Discharge Summary Assessment (RN) Last Done: 02/08/19 09:43 DC Date/Time DO NOT enter until pt leaves facility: 02/08/19 15:07
== END 2019-02-08 15:07 | disposition home health service (06) | DRG 470 ==
LOC: ASU 04:58 → 3E 09:25